=== PATIENT | male | born 1975 | race Caucasian/White ===

== ENCOUNTER → 2023-08-27 | Outpatient (CLI) | payer BC ==
--- NOTE | 2023-08-27 13:02 | CA ---
Transthoracic Echo Report Name: Zenon Morris Age: 47 Gender: M : 1975 Exam Date: 08/27/2023 08:01 Exam Location: [facility] Ht (in): 70 Wt (lb): 280 Ordering Physician: Préez Mckeon MD Attending/Referring Phys: National Sales Trupti Villanueva RDCS Procedure CPT: Indications: K60.0 ZEN LEG EDEMA R07.9 CHEST PAIN Cardiac Hx: Technical Quality: Fair Contrast 1: Total Dose (mL): Contrast 2: Total Dose (mL): MEASUREMENTS (Male / Female) Normal Values 2D ECHO LV Diastolic Diameter PLAX 4.6 cm 4.2 - 5.9 / 3.9 - 5.3 cm LV Systolic Diameter PLAX 3.2 cm IVS Diastolic Thickness 2.2 cm 0.6 - 1.0 / 0.6 - 0.9 cm LVPW Diastolic Thickness 1.6 cm 0.6 - 1.0 / 0.6 - 0.9 cm LV Relative Wall Thickness 0.8 RV Internal Dim ED PLAX 2.7 cm LA Volume 76.7 cm??? 18 - 58 / 22 - 52 cm??? LA Volume Index 30.0 cm???/m??? 16 - 28 cm???/m??? M-MODE Aortic Root Diameter MM 3.3 cm LA Systolic Diameter MM 4.7 cm LA Ao Ratio MM 1.4 AV Cusp Separation MM 1.9 cm DOPPLER AV Peak Velocity 123.1 cm/s AV Peak Gradient 6.1 mmHg AV Mean Velocity 91.6 cm/s AV Mean Gradient 3.6 mmHg AV Velocity Time Integral 27.9 cm LVOT Peak Velocity 91.3 cm/s LVOT Peak Gradient 3.3 mmHg LVOT Velocity Time Integral 19.7 cm MV Area PHT 3.6 cm??? Mitral E Point Velocity 91.5 cm/s Mitral A Point Velocity 93.3 cm/s Mitral E to A Ratio 1.0 MV Deceleration Time 210.5 ms MV E' Velocity 5.9 cm/s Mitral E to MV E' Ratio 15.4 TR Peak Velocity 262.7 cm/s TR Peak Gradient 27.6 mmHg Right Ventricular Systolic Press 30.8 mmHg FINDINGS Left Ventricle Severely increased left ventricular wall thickness. Left ventricular cavity size normal. Normal left ventricular systolic function with no obvious regional wall motion abnormalities. Left ventricular ejection fraction is estimated at 55-60 %. Grade 1 diastolic dysfunction. Right Ventricle Normal right ventricular size and function. Right ventricular systolic pressure within normal limits. Right Atrium Normal right atrial size. Left Atrium Mildly increased left atrial volume. Mildly increased left atrial area. Mitral Valve Structurally normal mitral valve. Moderate mitral regurgitation. Aortic Valve Trileaflet aortic valve. No aortic valve stenosis or regurgitation. Tricuspid Valve Structurally normal tricuspid valve. Mild tricuspid regurgitation. Pulmonic Valve Structurally normal pulmonic valve. Pericardium No pericardial effusion. Aorta Normal size aortic root and proximal ascending aorta. CONCLUSIONS Preserved LV systolic function ejection fraction better than 55% Mild left atrial enlargement Previewed by: Dr. Mahesh Butler MD (Electronically Signed) Final Date: 27 August 2023 13:01
== END | disposition home or self-care (01) ==
LOC: RADECHMAIN 06:44
PROVIDERS: ATTEND Internal Medicine
DX: I51.7 Cardiomegaly (principal); R60.0 Localized edema; K60.0 Acute anal fissure
CPT/HCPCS: 93306

== ENCOUNTER → 2023-08-27 | Outpatient (CLI) | payer BC ==
--- NOTE | 2023-08-27 09:33 | US ---
EXAMINATION TYPE: US liver DATE OF EXAM: 08/27/2023 COMPARISON: NONE CLINICAL INDICATION: Male, 47 years old with history of R74.8 ABNORMAL LEVELS OF OTHER SERUM ENZYMES; TECHNIQUE: Multiple sonographic images of the right upper quadrant are obtained. FINDINGS: EXAM MEASUREMENTS: Liver Length: 16.5 cm Gallbladder Wall: 0.23 cm CBD: 0.45 cm Right Kidney: 10.3 x 5.6 x 5.1 cm PUBLIC HEALTH PHYSICIAN NOTES:Limited exam due to large patient body habitus Pancreas: Tail obscured by overlying bowel gas Liver: Increased echogenicity Gallbladder: Multiple hyperechoic foci noted throughout Evidence for sonographic Hou's sign: No CBD: wnl Right Kidney: wnl IMPRESSION: 1. Increased echogenicity of liver can be associated with underlying hepatic steatosis or hepatocellu lar disease. Correlate clinically. 2. Cholelithiasis with no evidence of cholecystitis.
== END | disposition home or self-care (01) ==
LOC: RADUSWWP 06:41
PROVIDERS: ATTEND Internal Medicine
DX: K80.20 Calculus of gallbladder without cholecystitis without obstruction (principal); R74.8 Abnormal levels of other serum enzymes
CPT/HCPCS: 76705

== ENCOUNTER → 2023-11-10 | Outpatient (CLI) | payer OTHER ==
--- NOTE | 2023-11-10 16:30 | XR ---
Right elbow HISTORY: Pain. COMPARISON: 01/30/2015 TECHNIQUE: 3 views right elbow were obtained. FINDINGS: There is no fracture, dislocation or focal intraosseous abnormality. There is no joint effusion. There is mild hypertrophic spurring indicating mild degenerative arthritis. IMPRESSION: 1. No acute trauma. 2. Evidence of mild degenerative arthritis.
== END | disposition home or self-care (01) ==
LOC: RADXRMAIN 15:51
PROVIDERS: ATTEND Emergency Medicine
DX: S53.401A Unspecified sprain of right elbow, initial encounter (principal); M19.021 Primary osteoarthritis, right elbow

== ENCOUNTER → 2023-11-17 | Outpatient (CLI) | payer OTHER ==
--- NOTE | 2023-11-18 11:35 | MR ---
EXAMINATION TYPE: MR elbow RT wo con DATE OF EXAM: 11/17/2023 COMPARISON: Radiographs 11/10/2023 HISTORY: 48-year-old male Rt elbow pain. S53.401A UNSPECIFIED SPRAIN OF RIGHT ELBOW, INITIA TECHNIQUE: Multiplanar, multisequence images of the right elbow were obtained without IV contrast. FINDINGS: There is degenerative spurring in both ulnotrochlear and radiocapitellar joints with mildly irregular cartilage thinning scattered throughout. Punctate loose bodies anteriorly, seen on radiographs, not well depicted on MRI. Small physiologic joint effusion. There is mild thickening and some intermediate signal intensity at the distal biceps tendon without t ear. Some intrasubstance change with heterogeneous signal at the common extensor tendon origin without tea r. The underlying RCL appears intact. The common flexor tendon origin and underlying UCL appear intact. Triceps insertion is intact. Normal appearance of the ulnar nerve along the sulcus ulnaris. No acute or healing fracture or abnormal bone marrow edema. IMPRESSION: 1. Scattered mild osteoarthritic change throughout the radiocapitellar and ulnotrochlear joints. 2. Mild distal biceps tendinosis. 3. Additional mild tendinosis at the common flexor tendon origin without tear.
== END | disposition home or self-care (01) ==
LOC: RADMRIMAIN 19:24
PROVIDERS: ATTEND Emergency Medicine
DX: S53.401A Unspecified sprain of right elbow, initial encounter (principal); M67.823 Other specified disorders of tendon, right elbow

== ENCOUNTER 2023-12-20 23:22 | Emergency (ER) | payer BC ==
[~2023-12-20 23:22] MED LIST: SODIUM CHLORIDE 0.9% 1,000 ML BAG ONE
[2023-12-21] MEDS ORDERED: KETOROLAC 15 MG/ML 1 ML VIAL ONE (00:20)
--- NOTE | 2024-01-30 11:29 | CT ---
EXAM: CT Abdomen and Pelvis Without Intravenous Contrast CLINICAL HISTORY: Right flank pain x 1 day TECHNIQUE: Axial computed tomography images of the abdomen and pelvis without intravenous contrast. CTDI is 26.7 mGy and DLP is 1884 mGy-cm. This CT exam was performed using one or more of the following dose reduction techniques: automated exposure control, adjustment of the mA and/or kV according to patient size, and/or use of iterative reconstruction technique. COMPARISON: No relevant prior studies available. FINDINGS: Lung bases:Unremarkable. No mass. No consolidation. ABDOMEN: Liver:Unremarkable. Gallbladder and bile ducts:Cholelithiasis. No ductal dilation. Pancreas:Unremarkable. No ductal dilation. Spleen:Unremarkable. No splenomegaly. Adrenals:Unremarkable. No mass. Kidneys and ureters:Unremarkable. No hydronephrosis, nephrolithiasis, or obstructive uropathy. Stomach and bowel: Mild fecal retention, correlate for constipation. Diverticulosis, without acute diverticulitis. No small bowel obstruction. No free intraperitoneal air. PELVIS: Appendix:No findings to suggest acute appendicitis. Bladder: Wall thickening of the urinary bladder, which is decompressed. If there is concern for UTI, urinalysis is recommended. No stones. Reproductive:Unremarkable as visualized. ABDOMEN and PELVIS: Intraperitoneal space:Unremarkable. No free air. No significant fluid collection. Bones/joints:Degenerative changes of the spine. No acute fracture. No dislocation. Soft tissues:Unremarkable. Vasculature:Atherosclerotic changes of the aorta. No abdominal aortic aneurysm. Lymph nodes:Unremarkable. No enlarged lymph nodes. IMPRESSION: 1. No hydronephrosis, nephrolithiasis, or obstructive uropathy. 2. Wall thickening of the urinary bladder, which is decompressed. If there is concern for UTI, urinalysis is recommended. 3. Mild fecal retention, correlate for constipation. 4. Diverticulosis, without acute diverticulitis. No small bowel obstruction. No free intraperitoneal air. Radiologist: Ottoniel Key MD Electronically Signed: 12/21/23 02:25 Study ready at 00:29 and initial results transmitted at 02:25 [facility]
== END 2023-12-21 03:30 | disposition home or self-care (01) ==
LOC: EC 23:22
DX: K80.20 Calculus of gallbladder without cholecystitis without obstruction (principal)
CPT/HCPCS: 74176; 96361; 96374; 99284

== ENCOUNTER 2024-01-13 06:03 | Day surgery (SDC) | payer BC ==
[2024-01-13] MEDS ORDERED: droPERidol 5 MG/2 ML VIAL IVP ONE (06:44)
[2024-01-13] MEDS ORDERED: LIDOCAINE 1% (10MG/ML) FOR IV START INTRADERMA PRN (06:44)
[2024-01-13] MEDS: IV FLUID CONTINUATION 1,000 ML IV ONE ×2 (07:00→09:16)
[2024-01-13] MEDS ORDERED: HYDROmorphone 0.5 MG/0.5 ML SYRINGE IVP PRN (07:00)
[2024-01-13] MEDS: LACTATED RINGERS 1,000 ML IV SCH (07:01)
[2024-01-13] MEDS: ACETAMINOPHEN TAB 500 MG TAB PO PRN (07:11)
[2024-01-13] MEDS: DEXAMETHASONE SOD PHOSPHATE 4 MG/ML 1 ML VIAL IV ONE (07:11)
[2024-01-13] MEDS: ONDANSETRON 4 MG/2 ML VIAL IVP ONE (07:11)
[2024-01-13] MEDS: HEPARIN SODIUM,PORCINE 5,000 UNIT/ML 1 ML VIAL SQ PRN (07:11)
[2024-01-13] MEDS: MIDAZOLAM 2 MG/2 ML VIAL IV STA (07:18)
[2024-01-13 07:20] LABS: Basophils # (A) 0.1 k/uL (0-0.2); Basophils % (A) 1 %; Eosinophils # (A) 0.5 k/uL (0-0.7); Eosinophils % (A) 8 %; HCT 44.5 % (39.0-53.0); Lymphocytes # (A) 1.9 k/uL (1.0-4.8); Lymphocytes % (A) 29 %; MCH 32.4 pg (25.0-35.0); MCHC 33.7 g/dL (31.0-37.0); MCV 96.1 fL (80.0-100.0); Mean Platelet Volume 8.6; Monocytes # (A) 0.6 k/uL (0-1.0); Monocytes % (A) 9 %; Neutrophils # (A) 3.3 k/uL (1.3-7.7); Neutrophils % (A) 50 %; Platelet Count 174 k/uL (150-450); RBC 4.63 m/uL (4.30-5.90); RDW 13.6 % (11.5-15.5); WBC 6.5 k/uL (3.8-10.6)
[2024-01-13] MEDS: LIDOCAINE 1%-EPI 1:100,000 20 ML VIAL SQ ONE ×2 (07:28→07:56)
[2024-01-13] MEDS ORDERED: NEOSTIGMINE 1 MG/ML 10 ML VIAL ONE (07:30)
[2024-01-13] MEDS ORDERED: LIDOCAINE 1% INJ 10MG/ML (20 ML MDV) ONE (07:30)
[2024-01-13] MEDS ORDERED: fentaNYL (PF) 50 MCG/ML 2 ML AMP ONE (07:30)
[2024-01-13] MEDS ORDERED: GLYCOPYRROLATE 0.2 MG/ML 2 ML VIAL ONE (07:30)
[2024-01-13] MEDS ORDERED: PROPOFOL 10 MG/ML 20 ML VIAL IV ONE (07:30)
[2024-01-13] MEDS ORDERED: SUCCINYLCHOLINE CHLORIDE 200 MG/10 ML VIAL IV ONE (07:30)
[2024-01-13] MEDS ORDERED: KETOROLAC 30 MG/ML 1 ML VIAL ONE (07:30)
[2024-01-13] MEDS ORDERED: MIDAZOLAM 2 MG/2 ML VIAL ONE (07:30)
[2024-01-13] MEDS ORDERED: ROCURONIUM 10 MG/ML (5 ML VIAL) IV ONE (07:30)
[2024-01-13] MEDS: ceFAZolin 3 GM in SODIUM CHLORIDE 0.9% 100 ML IVPB PRN (07:55)
[2024-01-13 08:48] VITALS: TEMP 97.4
--- NOTE | 2024-01-13 08:52 | P.OP ---
Date of Procedure: 01/13/24 Preoperative Diagnosis: Cholelithiasis Postoperative Diagnosis: Cholelithiasis Liver mass Procedure(s) Performed: Laparoscopic cholecystectomy Laparoscopic liver biopsy Anesthesia: TAMMY Surgeon: Hiram Salamanca Estimated Blood Loss (ml): 5 Pathology: other (Gallbladder, liver biopsy) Condition: stable Disposition: PACU Description of Procedure: The patient was placed on the operating table. The patient received a general endotracheal tube anesthesia. The patients abdomen was prepped and draped in the usual sterile fashion. Through an infraumbilical stab incision, the fascia of the anterior abdominal wall was grasped with a pair of Kochers and then the Veress needle was placed in the peritoneal cavity. Position of the Veress needle was confirmed with positive drop test. The abdomen was then insufflated. After adequate insufflation, the 10 mm trocar was placed in the peritoneal cavity. Following this the laparoscope was placed in the peritoneal cavity. The patient was placed in the head-up, right side up position and then a 5 mm trocar was placed in the right lateral and right subcostal position under direct visualization. A 8 mm trocar was placed in the epigastric position. There was a 4 cm round liver mass located next to the gallbladder on the edge of the liver. This was biopsied with the tooth grasper. Electrocautery is used hemostasis. The gallbladder was grasped in the fundus and infundibulum. Traction on the gallbladder was placed in the lateral and the cephalad positions. The triangle of Calot was visualized.. The cystic duct was bluntly dissected until the union of the cystic duct and common bile duct was seen. A critical view of safety was achieved. The cystic duct was then divided and sealed with the Harmonic scissors. A PDS Endoloop was then placed throughout the cystic duct stump. The cystic artery divided and sealed with the Harmonic scissors. The gallbladder was then removed from the liver bed using Harmonic scissors. The gallbladder was then extracted through the epigastric port site. Operative field was checked for any bleeding spots and Harmonic scissors was used to coagulate the liver bed. The abdomen was irrigated. The trocars were removed. The skin was closed using interrupted 3-0 Vicryl suture. Dermabond dressing were applied. The patient tolerated the procedure well.
[2024-01-13 11:09] VITALS: BP 166/93; PULSE 86; RESP 16
== END 2024-01-13 11:28 | disposition home or self-care (01) ==
LOC: OR 06:03
PROVIDERS: ATTEND Surgery
DX: K80.00 Calculus of gallbladder with acute cholecystitis without obstruction (principal); K75.81 Nonalcoholic steatohepatitis (NASH); K74.00 Hepatic fibrosis, unspecified
CPT/HCPCS: 85025; 88304; 88307; 88313; 88342